=== PATIENT | male | born 1960 | race Caucasian/White ===

== ENCOUNTER 2023-04-16 08:55 | Day surgery (SDC) | payer BC ==
[2023-04-16] MEDS ORDERED: Midazolam 1 MG/ML 2 ML SDV IV ONE (08:56)
[2023-04-16] MEDS ORDERED: Lidocaine 2% 5 ML SDV IV ONE (08:56)
[2023-04-16] MEDS ORDERED: Propofol 200 MG/20 ML SDV IV ONE (08:56)
[2023-04-16] MEDS ORDERED: Lactated Ringers 1,000 ML IV SCH (09:00)
[2023-04-16] MEDS ORDERED: Sodium Chloride 0.9% 10 ML Syringe FLUSH PRN (09:00)
[2023-04-16] MEDS ORDERED: Simethicone Drops 40 MG/0.6 ML 30 ML Bottle ONE (10:35)
== END 2023-04-16 11:58 | disposition home or self-care (01) ==
LOC: FB.SDS 08:55
PROVIDERS: ATTEND Surgery
DX: Z12.11 Encounter for screening for malignant neoplasm of colon (principal); K57.30 Diverticulosis of large intestine without perforation or abscess without bleeding; K40.90 Unilateral inguinal hernia, without obstruction or gangrene, not specified as recurrent; Z79.899 Other long term (current) drug therapy; Z87.891 Personal history of nicotine dependence
CPT/HCPCS: 00812; A9270-GY; J2250; J2704; J7120